=== PATIENT | female | born 1970 | race Two or more races ===

== ENCOUNTER 2021-11-06 13:17 | Emergency (ER) | payer MEDICAID, OTHER ==
[~2021-11-06] VITALS: Ht 154.9 cm; Wt 81.0 kg
[2021-11-06 13:23] VITALS: BP 111/59
[2021-11-06 14:58] LABS: BASOPHILS % 0.4 % (0.0-2.0); EOSINOPHILS % 1.2 % (0.0-5.0); HEMATOCRIT. 41.4 % (36.0-48.0); HEMOGLOBIN. 13.8 g/dL (12.0-16.0); LYMPHOCYTES % 30.1 % (20.0-50.0); MEAN CORPUSCULAR HEMOGLOBIN 30.1 pg (28.0-32.0); MEAN CORPUSCULAR VOLUME 90.1 fL (81.0-99.0); MEAN PLATELET VOLUME 8.3 fl (7.4-10.4); MONOCYTES % 9.5 % (2.0-8.0); NEUTROPHILS % 58.8 % (40.0-76.0); PLATELET 293 x1000/uL (130-400); RED CELL DISTRIBUTION WIDTH 14.9 % (11.6-14.6)
[2021-11-06 15:01] LABS: CHLORIDE 107 mEq/L (98-107)
[2021-11-06 16:46] LABS: CLARITY URINE CLEAR (CLEAR); COLOR URINE YELLOW (YELLOW); KETONES URINE 1+ (NEGATIVE); LEUKOCYTE ESTERASE URINE NEGATIVE (NEGATIVE); NITRITE URINE NEGATIVE (NEGATIVE); OCCULT BLOOD URINE NEGATIVE (NEGATIVE); PROTEIN URINE NEGATIVE (NEGATIVE); SPECIFIC GRAVITY URINE 1.006 (1.005-1.030); UROBILINOGEN URINE 0.2 E.U./dL (0.2-1.0)
[2021-11-06] MEDS ORDERED: IBUP-2028 MT (20:29)
[2021-11-06] MEDS ORDERED: TOPUD PO (20:29)
[2021-11-06] MEDS ORDERED: OMEP20CA14 MT (20:30)
== END 2021-11-06 16:04 | disposition home or self-care (01) ==
LOC: ER 13:17
DX: R10.11 Right upper quadrant pain (principal)
CPT/HCPCS: 36415; 74177; 76705; 80053; 81003; 81025; 85025; 99285